=== PATIENT | female | born 1950 | race Caucasian/White ===

== ENCOUNTER → 2018-06-28 | Outpatient (CLI) | payer MEDICARE, OTHER ==
[~2018-06-28] MED LIST: HYDACE5; METO50ER; OMEP10ER
== END | disposition home or self-care (01) ==
LOC: PLD 08:24 → LAB SHORT 08:24
DX: D48.5 Neoplasm of uncertain behavior of skin (principal)
CPT/HCPCS: 88305

== ENCOUNTER → 2019-10-22 | Outpatient (CLI) | payer MEDICARE, BC | END | disposition home or self-care (01) | LOC: LAB SHORT 12:37 → LAB EV 12:37 | DX: N39.0 Urinary tract infection, site not specified (principal) | CPT/HCPCS: 87077; 87086; 87186 ==

== ENCOUNTER → 2020-07-15 | Outpatient (CLI) | payer MEDICARE, BC | END | disposition home or self-care (01) | LOC: LAB SHORT 08:02 → LAB 08:02 | DX: I99.9 Unspecified disorder of circulatory system (principal) | CPT/HCPCS: 88305 ==

== ENCOUNTER → 2021-11-08 | Outpatient (CLI) | payer MEDICARE, BC ==
[~2021-11-08] MED LIST changes: +ASPI81CH; +BENADRYL25 MG PO; +HYDCHL12.5; +METCAR750; +PRED20 PO; +TRIA50
== END | disposition home or self-care (01) ==
LOC: LAB SHORT 15:42 → LAB 15:42
DX: N39.0 Urinary tract infection, site not specified (principal)
CPT/HCPCS: 87086

== ENCOUNTER → 2021-11-14 | Outpatient (CLI) | payer MEDICARE, BC | END | disposition home or self-care (01) | LOC: LAB 13:14 → LAB SHORT 13:14 | DX: N39.0 Urinary tract infection, site not specified (principal) | CPT/HCPCS: 87077; 87086; 87186 ==